=== PATIENT | male | born 1975 | race Caucasian/White ===

== ENCOUNTER 2017-04-06 16:16 | Emergency (ER) | payer OTHER ==
[~2017-04-06 16:16] MED LIST: ALPRAZOLAM; AMITRYPTYLINE PO; CIPRO PO; CLEOCIN HCL300 M1 PO; EC-NAPROSYN500 MG PO; FLEXERIL PO; FLEXERIL10 MG PO; FLOMAX0.4 M1 PO; HYDROCODON-ACE1 EAC7 PO; HYDROCODON-ACE1 EAC9 PO; IBUPROFEN PO; KEFLEX PO; KEFLEX500 MG PO; KETOPROFEN PO; KLONOPIN PO; LORTAB 10/500 T1 TAB PO; LORTAB 7.5-3251 EACH PO; LOTREL; LYRICA PO; NO MEDICATIONS; NORCO 10/325 TA1 TAB PO; NORCO 5/325 TAB1 TAB PO; NORCO1 TAB 10/3 PO; ONDANSETRON ODT4 MG PO; PEN-VEE K PO; PHENERGAN PO; PHENERGAN25 MG; PHENERGAN25 MG PO; PREDNISONE PO; ROBAXIN PO; SUDAFED; VICODIN 5/500 T1 TAB PO; ZOVIRAX800 MG PO
== END 2017-04-06 17:31 | disposition home or self-care (01) ==
LOC: SED 16:16
DX: L03.115 Cellulitis of right lower limb (principal); F17.210 Nicotine dependence, cigarettes, uncomplicated; Z88.5 Allergy status to narcotic agent
CPT/HCPCS: 99283